=== PATIENT | female | born 1980 | race Caucasian/White ===

== ENCOUNTER 2024-12-24 05:00 | Day surgery (SDC) | payer OTHER ==
[2024-12-23 12:36] VITALS: BP 132/83
[~2024-12-24] VITALS: Ht 157.5 cm; Wt 54.0 kg
[2024-12-24] MEDS ORDERED: BUPIVACAINE HCL/MPF 0.5% 30ML VIAL ONE (07:05)
[2024-12-24] MEDS ORDERED: CLINDAMYCIN PHOSPHATE 150 MG/ML (900mg) ONE (07:05)
[2024-12-24] MEDS ORDERED: POVIDONE-IODINE 118 ML BOTT TOP ONE (07:05)
[2024-12-24] MEDS ORDERED: CEFAZOLIN SODIUM 1,000 MG VIAL ONE (07:06)
[2024-12-24] MEDS ORDERED: LIDOCAINE HCL 1%/EPINEPHRINE 20ML VIAL IJ ONE (07:06)
[2024-12-24] MEDS ORDERED: CHLORHEXIDINE GLUCONATE 120 ML BOTTLE TOP ONE (07:06)
[2024-12-24] MEDS ORDERED: VANCOMYCIN HCL 1,000 MG VIAL ONE (07:06)
[2024-12-24] MEDS ORDERED: ONDANSETRON HCL 2 MG/ML VIAL IV PRN (08:30)
[2024-12-24] MEDS ORDERED: MORPHINE SULFATE 4 MG/ML VIAL IV PRN (08:30)
[2024-12-24] MEDS ORDERED: POVIDONE-IODINE SCRUB 118 ML BOTT TOP ONE (08:31)
[2024-12-24] MEDS ORDERED: SUGAMMADEX SODIUM 200 MG/2 ML VIAL IV ONE (09:33)
[2024-12-24] MEDS ORDERED: EPINEPHRINE HCL/PF 1 MG/ML AMPUL IR ONE (10:15)
[2024-12-24] MEDS ORDERED: MORPHINE SULFATE 4 MG/ML VIAL IV ONE (11:10)
== END 2024-12-24 14:20 | disposition home or self-care (01) ==
LOC: CIR.AMB 05:00
PROVIDERS: ATTEND Plastic Surgery
DX: T85.44XA Capsular contracture of breast implant, initial encounter (principal); N64.81 Ptosis of breast; N64.89 Other specified disorders of breast; Z88.6 Allergy status to analgesic agent; J45.909 Unspecified asthma, uncomplicated